=== PATIENT | male | born 1975 | race Native Hawaiian/Other Pacific Islander ===

== ENCOUNTER 2023-04-17 11:11 | Emergency (ER) | payer OTHER, SELFPAY ==
[2023-04-17 11:29] VITALS: BP 131/94; PULSE 98; RESP 16; TEMP 36.4; O2SAT 98; BMI 34.5
--- NOTE | 2023-04-17 11:47 | ED.BACK ---
HPI - Back Pain/Injury General Chief Complaint: Back Injury/Pain Stated Complaint: back pain Time Seen by Provider: 04/17/23 11:21 Source: patient Mode of arrival: ambulatory Limitations: no limitations History of Present Illness HPI Narrative: 47-year-old male today presenting with back pain started yesterday. Patient states that this happens periodically where he gets spasms in his back and he can not move for a couple of days. He denies any systemic symptoms. Nothing seems to make pain better, moving makes it worse. He states he has gotten shots in his back in his muscles before, also has gotten shots in his arm for this and has been prescribed medications at home. He does not do any physical therapy or core strengthening. He denies any focal neurologic deficits. No fevers or chills. Related Data Previous Rx's Medication Instructions Recorded celecoxib 200 mg capsule (Celebrex) 200 mg PO BID PRN pain #10 caps 04/17/23 Allergies Allergy/AdvReac Type Severity Reaction Status Date / Time No Known Drug Allergies Allergy Verified 04/17/23 11:28 Review of Systems Status of ROS: Reports: 10 or more systems reviewed and unremarkable except as noted in History and below [facility] Social History Smoking Status: Never smoker Non-prescribed substance use: denies use Exam Narrative: Exam Narrative: Obese, well-developed patient in no acute distress. Alert and oriented. Answers questions appropriately. Mood and affect are appropriate. Thoughts are goal oriented and rational. No tangential or magical thinking noted. Patient speaks in full sentences without needing to catch his breath. Does not appear ill or toxic. HEENT: Normocephalic atraumatic. Pupils are equally round reactive to light. Extraocular muscles are intact. Conjunctivae are moist without any icterus noted. Moist mucous membranes. Cardiovascular: Heart is regular rate and rhythm. Lungs: Clear to auscultation bilaterally. Abdomen: Protuberant. Extremities: Bilateral lower extremities are without edema. Normal DP and PT pulses. Skin: Well perfused without any obvious rashes. Back: Normal appearance. No tenderness to palpation of the cervical, thoracic or lumbar spine. He has tenderness over the paraspinal musculature on the right side of the lumbar spine. Const: Vital Signs, click to edit/add: Vital Signs - 24 hr 04/17/23 11:29 Temperature 97.5 F L Pulse Rate [Right Pulse Oximeter] 98 Respiratory Rate 16 Blood Pressure [Ri ght Upper Arm] 131/94 H Pulse Oximetry 98 Oxygen Delivery Me thod Room Air Course Course ED Course: Patient stated that in the past chest into his back have been better for him: Therefore did go ahead and proceed with a trigger point injections with 1 mL of lidocaine into the most tender area. Area was cleaned in the usual sterile manner and 1 mL lidocaine was introduced via peppering with a 25 gauge 1-1/2 inch needle. He also received 60 mg of IM Toradol. Patient will be sent home with a prescription for Celebrex and physical therapy is encouraged. Vital Signs Vital signs: Initial Vital Signs Temperature 97.5 F L 04/17/23 11:29 Temperature Source Temporal Artery Scan 04/17/23 11:29 Pulse Rate 98 04/17/23 11:29 Respiratory Rate 16 04/17/23 11:29 Blood Pressure 131/94 H 04/17/23 11:29 Blood Pressure Mean 106 H 04/17/23 11:29 Blood Pressure Position Sitting 04/17/23 11:29 Pulse Oximetry 98 04/17/23 11:29 Oxygen Delivery Method Room Air 04/17/23 11:29 Vital Signs Temperature 97.5 F L 04/17/23 11:29 Pulse Rate 98 04/17/23 11:29 Respiratory Rate 16 04/17/23 11:29 Blood Pressure 131/94 H 04/17/23 11:29 Pulse Oximetry 98 04/17/23 11:29 Oxygen Delivery Method Room Air 04/17/23 11:29 Temperature 97.5 F L 04/17/23 11:29 Pulse Rate 98 04/17/23 11:29 Respiratory Rate 16 04/17/23 11:29 Blood Pressure 131/94 H 04/17/23 11:29 Pulse Oximetry 98 04/17/23 11:29 Oxygen Delivery Method Room Air 04/17/23 11:29 MDM - Back Pain/Injury MDM Narrative Medical decision making narrative: Acute low back pain. Plan per above. Discharge Plan Discharge Clinical Impression: Acute low back pain Patient Disposition: Home, Self-Care Condition: Stable Additional Instructions: Take pain meds as needed/as prescribed. I do recommend that you start physical therapy for core and back strengthening-this will decrease the amount of back spasms. Prescriptions: New celecoxib [Celebrex] 200 mg capsule 200 mg PO BID PRN (Reason: pain) Qty: 10 0RF Stand Alone Forms: Access Scientific Info Instructions
[2023-04-17] MEDS: KETOROLAC 60 MG/2 ML inj IM (11:52)
== END 2023-04-17 12:05 | disposition home or self-care (01) ==
LOC: ED 11:56
PROVIDERS: Emergency Provider Family Medicine
DX: M54.50 Low back pain, unspecified (principal)
CPT/HCPCS: 20552; 99283; 99284; J1885